=== PATIENT | male | born 1980 | race African-American/Black ===

== ENCOUNTER 2017-04-12 09:52 | Emergency (ER) | payer BC | END 2017-04-12 10:40 | disposition home or self-care (01) | LOC: MADERS 09:52 | DX: J20.9 Acute bronchitis, unspecified (principal); I10 Essential (primary) hypertension | CPT/HCPCS: 99283 ==

== ENCOUNTER 2019-07-15 12:27 | Emergency (ER) | payer BC ==
[2019-07-15] MEDS ORDERED: Diazepam 5 MG TAB ONE (12:41)
[2019-07-15] MEDS ORDERED: HYDROmorphone 0.5 MG/0.5 ML SYRINGE ONE (12:42)
== END 2019-07-15 14:24 | disposition home or self-care (01) ==
LOC: MADERS 12:27
DX: M54.5 Low back pain (principal); I10 Essential (primary) hypertension
CPT/HCPCS: 96372; 99283; J1170